=== PATIENT | male | born 1985 | race Caucasian/White ===

== ENCOUNTER 2021-01-06 15:08 | Emergency (ER) | payer BC ==
[~2021-01-06 15:08] MED LIST: BACTRIM DS TAB1 EACH PO; BACTROBAN OINT22 GM EXT; ELIQUIS5 MG PO; FLEXERIL 10 MG10 MG PO; IBUPROFEN600 MG PO; PREDNISONE 50 M50 MG PO; Voltaren Gel 1 % TOP
[2021-01-06 16:02] LABS: HEMOGLOBIN 15.9 gm/dl (14.0-17.5); RED BLOOD COUNT 4.99 M/UL (4.20-5.50); WHITE BLOOD COUNT 3.2 K/UL (4.5-11.0)
[2021-01-06 16:30] LABS: BUN/CREATININE RATIO 14 (0-10)
== END 2021-01-06 19:00 | disposition home or self-care (01) ==
LOC: ER1 15:08
PROVIDERS: Emergency Medicine
DX: U07.1 COVID-19 (principal); Z23 Encounter for immunization; Z86.711 Personal history of pulmonary embolism; Z90.89 Acquired absence of other organs
CPT/HCPCS: 80053; 82550; 82553; 83874; 84484; 85025; 99285; M0243; Q9967